=== PATIENT | female | born 1995 | race Caucasian/White ===

== ENCOUNTER 2018-01-05 18:38 | Inpatient (IN) | payer BC, OTHER ==
[~2018-01-05] VITALS: Ht 160 cm; Wt 49.4 kg
[2018-01-05 21:52] VITALS: BP 126/91
[2018-01-05] MEDS ORDERED: MAGNESIUM HYDROXIDE 30 ML LIQUID UDC PO PRN (22:00)
[2018-01-05] MEDS ORDERED: MAG HYDROX/AL HYDROX/SIMETH 30 ML LIQUID UDC PO PRN (22:00)
[2018-01-05] MEDS ORDERED: ONDANSETRON 4 MG/2 ML VIAL IM PRN (22:00)
[2018-01-05] MEDS ORDERED: DICYCLOMINE HCL 20 MG TABLET PO PRN (22:00)
[2018-01-05] MEDS ORDERED: MIRALAX 17 GM POWD.PACK PO PRN (22:00)
[2018-01-05] MEDS ORDERED: IBUPROFEN 400 MG TABLET PO PRN (22:00)
[2018-01-05] MEDS ORDERED: LOPERAMIDE HCL 2 MG CAPSULE PO PRN ×2 (22:00)
[2018-01-05] MEDS ORDERED: HYDROXYZINE PAMOATE 25 MG CAPSULE PO PRN (22:00)
[2018-01-05] MEDS ORDERED: diphenhydrAMINE 50 MG CAPSULE PO PRN (22:00)
[2018-01-05] MEDS ORDERED: CLONIDINE HCL 0.1 MG TABLET PO PRN (22:00)
[2018-01-05] MEDS ORDERED: METHOCARBAMOL 750 MG TABLET PO PRN (22:00)
[2018-01-05] MEDS ORDERED: ACETAMINOPHEN 325 MG TABLET PO PRN (22:00)
[2018-01-05] MEDS ORDERED: ONDANSETRON ODT 4 MG TAB.RAPDIS SL PRN (22:00)
[2018-01-05 23:22] LABS: *AMPHETAMINE, URINE POSITIVE (NEGATIVE); *BARBITURATE, URINE POSITIVE (NEGATIVE); *CANNABINOID, URINE NEGATIVE (NEGATIVE); *COCCAINE, URINE POSITIVE (NEGATIVE); *OPIATE, URINE POSITIVE (NEGATIVE); *PHENCYCLIDINE SCREEN,URINE NEGATIVE (NEGATIVE)
[2018-01-05 23:28] LABS: BASOPHILS % (AUTO) 0.1 % (0.0-2.0); EOSINOPHILS # (AUTO) 0.1 K/uL (0.0-0.7); EOSINOPHILS % (AUTO) 0.7 % (0.0-7.0); HEMOGLOBIN 14.6 g/dL (10.9-14.3); LYMPHOCYTES # (AUTO) 1.9 K/uL (20.0-40.0); LYMPHOCYTES % (AUTO) 18.1 % (20.5-51.5); MEAN CORPUSCULAR HEMOGLOBIN 31.5 uug (24.7-32.8); MEAN CORPUSCULAR HGB CONC 35 g/dL (32.3-35.6); MEAN CORPUSCULAR VOLUME 90.7 fL (75.5-95.3); MONOCYTES # (AUTO) 0.4 K/uL (2.0-10.0); MONOCYTES % (AUTO) 4.1 % (0.0-11.0); NEUTROPHILS # (AUTO) 7.9 K/uL (1.8-8.9); PLATELET COUNT (AUTO) 268 K/uL (179-408); RED BLOOD CELL COUNT(AUTO) 4.63 MIL/uL (3.63-4.92); WHITE BLOOD COUNT (AUTO) 10.3 K/uL (3.8-11.8)
[2018-01-05 23:35] LABS: ALANINE AMINOTRANSFERASE 21 U/L (14-59); ALKALINE PHOSPHATASE 76 U/L (50-136); AMYLASE 57 U/L (25-115); ASPARTATE AMINOTRANSFERASE 17 U/L (15-37); BILIRUBIN,TOTAL 0.4 mg/dL (0.2-1.0); CARBON DIOXIDE 31 mmol/L (21-32); CHLORIDE 100 mmol/L (98-107); CREATININE 0.8 mg/dL (0.6-1.3); GLUCOSE 105 mg/dL (74-106); LIPASE 134 U/L (73-393); MAGNESIUM 2.3 mg/dL (1.8-2.4); POTASSIUM 3.6 mmol/L (3.5-5.1); TOTAL PROTEIN, SERUM 8.4 g/dL (6.4-8.2); UREA NITROGEN, BLOOD 12 mg/dL (7-18)
[2018-01-05 23:39] LABS: *URINE HCG, QUAL NEGATIVE (NEGATIVE)
[2018-01-05 23:40] LABS: ETHANOL < 3 MG/DL (0-0)
[2018-01-05 23:44] LABS: THYROID STIMULATING HORMONE 1.953 mIU/mL (0.358-3.740)
[2018-01-06] VITALS: BP 125/77
[2018-01-06] MEDS ORDERED: LITH150C PO (00:16)
[2018-01-06] MEDS ORDERED: ARIP5TAB10 PO (00:16)
[2018-01-06] MEDS ORDERED: PREG150C PO (00:16)
[2018-01-06] MEDS ORDERED: TRAZ-214 PO (00:16)
[2018-01-06] MEDS ORDERED: BUPR-96 PO (00:16)
[2018-01-06] MEDS: BUPRENORPHINE HCL 2 MG TAB.SUBL SL PRN ×2 (00:18→08:53)
[2018-01-06 08:00] VITALS: BP 90/67
[2018-01-06] MEDS: MULTIVITAMINS,THERAPEUTIC TABLET PO SCH (08:53)
[2018-01-06] MEDS ORDERED: TUBERCULIN,PURIF.PROT.DERIV. 5 TU/0.1 ML TEST ID ONE (09:00)
[2018-01-06 12:00] VITALS: BP 111/64
[2018-01-06] MEDS ORDERED: 3 DAY TAPER BUPRENORPHINE -SERENITY PROTOCOL SL PRN (12:15)
[2018-01-06] MEDS ORDERED: LITHIUM CARBONATE 150 MG PO SCH (14:00)
[2018-01-06] MEDS: ARIPIPRAZOLE 5 MG TABLET PO SCH (14:31)
[2018-01-06] MEDS: buPROPion XL 150 MG TAB.SR.24H PO SCH (14:31)
[2018-01-06 16:00] VITALS: BP 90/60
[2018-01-06] MEDS: LITHIUM CARBONATE 300 MG TABLET PO SCH (17:00)
[2018-01-06 20:00] VITALS: BP 90/51
[2018-01-06] MEDS ORDERED: BUPRENORPHINE HCL 2 MG TAB.SUBL SL SCH (21:00)
[2018-01-06] MEDS: TRAZODONE 100 MG TABLET PO SCH (21:00)
[2018-01-07] VITALS: BP 80/51
[2018-01-07 04:00] VITALS: BP 83/54
[2018-01-07 08:00] VITALS: BP 96/60
[2018-01-07 08:06] LABS: HEPATITIS B SURFACE AG Negative (Negative)
[2018-01-07] MEDS: BUPRENORPHINE HCL 2 MG TAB.SUBL SL SCH ×3 (09:09→21:00)
[2018-01-07] MEDS: LITHIUM CARBONATE 300 MG TABLET PO SCH ×3 (09:09→17:39)
[2018-01-07] MEDS: ARIPIPRAZOLE 5 MG TABLET PO SCH (09:09)
[2018-01-07] MEDS: buPROPion XL 150 MG TAB.SR.24H PO SCH (09:09)
[2018-01-07] MEDS: MULTIVITAMINS,THERAPEUTIC TABLET PO SCH (09:09)
[2018-01-07 12:00] VITALS: BP 90/60
[2018-01-07 16:00] VITALS: BP 90/60
[2018-01-07 20:11] VITALS: BP 97/68
[2018-01-07] MEDS ORDERED: BUPRENORPHINE HCL 2 MG TAB.SUBL SL ONE (23:30)
[2018-01-07] MEDS: TRAZODONE 100 MG TABLET PO SCH (23:41)
[2018-01-08 00:17] VITALS: BP 101/65
[2018-01-08 08:18] VITALS: BP 90/62
[2018-01-08] MEDS: LITHIUM CARBONATE 300 MG TABLET PO SCH ×3 (08:49→16:41)
[2018-01-08] MEDS: MULTIVITAMINS,THERAPEUTIC TABLET PO SCH (08:49)
[2018-01-08] MEDS: buPROPion XL 150 MG TAB.SR.24H PO SCH (08:49)
[2018-01-08] MEDS: ARIPIPRAZOLE 5 MG TABLET PO SCH (08:49)
[2018-01-08] MEDS ORDERED: BUPRENORPHINE HCL 2 MG TAB.SUBL SL SCH (09:00)
[2018-01-08 12:15] VITALS: BP 90/60
[2018-01-08] MEDS ORDERED: HYDR-3895 PO (14:47)
[2018-01-08] MEDS ORDERED: DICY20TA28 PO (14:47)
[2018-01-08] MEDS ORDERED: DIPH50CA37 PO (14:47)
[2018-01-08] MEDS ORDERED: IBUP-1953 PO (14:47)
[2018-01-08] MEDS ORDERED: CLON0.1T14 PO (14:47)
[2018-01-08] MEDS ORDERED: METH-406 PO (14:47)
[2018-01-08 16:58] VITALS: BP 97/60
[2018-01-08 20:10] VITALS: BP 93/54
[2018-01-08] MEDS: TRAZODONE 100 MG TABLET PO SCH (21:00)
[2018-01-09 08:07] VITALS: BP 98/65
[2018-01-09] MEDS: buPROPion XL 150 MG TAB.SR.24H PO SCH (08:44)
[2018-01-09] MEDS: MULTIVITAMINS,THERAPEUTIC TABLET PO SCH (08:44)
[2018-01-09] MEDS: LITHIUM CARBONATE 300 MG TABLET PO SCH (08:44)
[2018-01-09] MEDS: ARIPIPRAZOLE 5 MG TABLET PO SCH (08:44)
== END 2018-01-09 09:30 | disposition home or self-care (01) | DRG 895 ==
LOC: SRC 21:02
PROVIDERS: ADMIT Family Medicine Addiction Medicine; ATTEND Family Medicine Addiction Medicine
PROC: HZ2ZZZZ Detoxification Services for Substance Abuse Treatment (ICD-10-PCS; principal; 2018-01-05)
PROC: HZ31ZZZ Individual Counseling for Substance Abuse Treatment, Behavioral (ICD-10-PCS; 2018-01-07)
PROC: HZ41ZZZ Group Counseling for Substance Abuse Treatment, Behavioral (ICD-10-PCS; 2018-01-08)
DX: F11.23 Opioid dependence with withdrawal (principal); F31.32 Bipolar disorder, current episode depressed, moderate; Z59.0 Homelessness; M79.7 Fibromyalgia; F17.210 Nicotine dependence, cigarettes, uncomplicated; F41.9 Anxiety disorder, unspecified; F15.23 Other stimulant dependence with withdrawal
CPT/HCPCS: 36415; 70030-TC; 80307; 80324; 80345; 80353; 80361; 83690; 83735; 84443; 84703; 85025; 86592; 86705; 86803; 87340; 87806; A4663; G0480; J2405; Q0162; Q0163